=== PATIENT | male | born 1955 | race Caucasian/White ===

== ENCOUNTER 2023-06-17 05:57 | Day surgery (SDC) | payer MEDICARE, OTHER ==
[2023-06-16 09:44] VITALS: BMI 22.9
[2023-06-17] MEDS ORDERED: PROPOFOL 40 ML ONE (07:33)
[2023-06-17] MEDS ORDERED: Lidocaine 1% PF 5 ML VIAL ONE (07:33)
[2023-06-17] MEDS ORDERED: PROPOFOL 20 ML ONE (08:29)
== END 2023-06-17 09:20 | disposition home or self-care (01) ==
LOC: CSHSDC 05:57
PROVIDERS: ATTEND Internal Medicine Gastroenterology
PROC: 0DJD8ZZ Inspection of Lower Intestinal Tract, Via Natural or Artificial Opening Endoscopic (ICD-10-PCS; principal; 2023-06-17)
DX: K57.30 Diverticulosis of large intestine without perforation or abscess without bleeding (principal); K64.9 Unspecified hemorrhoids; I10 Essential (primary) hypertension; E11.9 Type 2 diabetes mellitus without complications; I25.10 Atherosclerotic heart disease of native coronary artery without angina pectoris; E78.5 Hyperlipidemia, unspecified; K21.9 Gastro-esophageal reflux disease without esophagitis; H40.9 Unspecified glaucoma; N20.0 Calculus of kidney; N40.0 Benign prostatic hyperplasia without lower urinary tract symptoms; Z86.010 Personal history of colon polyps; Z88.8 Allergy status to other drugs, medicaments and biological substances; Z91.040 Latex allergy status; Z79.899 Other long term (current) drug therapy
CPT/HCPCS: J2704